=== PATIENT | male | born 1940 | race Caucasian/White ===

== ENCOUNTER 2017-04-20 01:58 | Emergency (ER) | payer MEDICARE ==
[~2017-04-20] VITALS: Ht 165.1 cm; Wt 82.0 kg
[2017-04-20 02:20] VITALS: BP 137/87
== END 2017-04-20 03:35 | disposition home or self-care (01) ==
LOC: ER 02:06
DX: J70.5 Respiratory conditions due to smoke inhalation (principal); E11.9 Type 2 diabetes mellitus without complications
CPT/HCPCS: 71010; 99284

== ENCOUNTER 2022-12-01 11:32 | Inpatient (IN) | payer MEDICARE, OTHER ==
[~2022-12-01] VITALS: Ht 165.1 cm; Wt 78.9 kg
[2022-12-01] MEDS ORDERED: DEXAMETHASONE 10 MG/ML VIAL IV ONE (11:45)
[2022-12-01 12:17] LABS: BASOPHILS % 0.2 % (0.0-2.0); EOSINOPHILS % 0.2 % (0.0-5.0); HEMATOCRIT. 43.1 % (42.0-52.0); HEMOGLOBIN. 14.7 g/dL (14.0-18.0); LYMPHOCYTES % 13.2 % (20.0-50.0); MEAN CORPUSCULAR HEMOGLOBIN 28.3 pg (28.0-32.0); MEAN CORPUSCULAR VOLUME 82.9 fL (80.0-94.0); MEAN PLATELET VOLUME 8.1 fl (7.4-10.4); NEUTROPHILS % 78.4 % (40.0-76.0); PLATELET 398 x1000/uL (130-400); RED CELL DISTRIBUTION WIDTH 14.5 % (11.6-14.6)
[2022-12-01 12:28] LABS: D-DIMER 0.45 mg/L FEU (<0.50); INR 1.1; PROTHROMBIN TIME 11.5 sec (9.6-11.0)
[2022-12-01 12:30] LABS: CHLORIDE 98 mEq/L (98-107)
[2022-12-01 12:31] LABS: BG BASE EXCESS 3.2 mmol/L (-2.0-2.0); BG CARBOXYHEMOGLOBIN 0.7 % (0.5-1.5); BG DEOXYHEMOGLOBIN 3.6 % (0.0-5.0); BG FRACTION INSPIRED OXYGEN 100; BG HCO3 ACT 26.5 mmol/L (22.0-26.0); BG METHEMOGLOBIN 0.3 % (0.0-1.5); BG OXYGEN SATURATION 96.4 % (92.0-98.5); BG OXYHEMOGLOBIN 95.4 % (94.0-97.0); BG PCO2 36.1 mmHg (35.0-45.0); BG PH 7.483 (7.350-7.450); BG PO2 80.7 mmHg (75.0-100.0); BG SAMPLE SITE RIGHT BRACHIAL; BG TOTAL HEMOGLOBIN 14.5 g/dL (12.0-18.0); BG VENT MODE MASK - NRB
[2022-12-01] MEDS ORDERED: DEXAMETHASONE 10 MG/ML VIAL IV NR (14:15)
[2022-12-01 21:00] VITALS: BP 144/61
[2022-12-01] MEDS ORDERED: INSNOV SUBCUT (21:06)
[2022-12-01] MEDS ORDERED: HYDR25TA PO (21:06)
[2022-12-01] MEDS ORDERED: ASPI-1497 PO (21:06)
[2022-12-01] MEDS ORDERED: ATOR20TA65 PO (21:06)
[2022-12-01] MEDS ORDERED: LISI40TA13 PO (21:06)
[2022-12-01] MEDS ORDERED: AMLO10TA80 PO (21:06)
[2022-12-01] MEDS ORDERED: INSU100I43 SQ ×2 (21:06)
[2022-12-01] MEDS ORDERED: ONDANSETRON HCL 4MG/2ML INJ IV PRN (22:15)
[2022-12-01] MEDS ORDERED: ACETAMINOPHEN 325MG TABLET PO PRN (22:15)
[2022-12-01] MEDS ORDERED: DEXTROSE 50% WATER 50ML SYRINGE IV PRN (22:30)
[2022-12-01] MEDS ORDERED: LEVOFLOXACIN 500MG PREMIX 100 ML IV SCH (23:00)
[2022-12-01] MEDS: DEXAMETHASONE 10 MG/ML VIAL IV SCH (23:11)
[2022-12-01] MEDS: ENOXAPARIN 40MG/0.4ML SYR SUBCUT SCH (23:12)
[2022-12-01] MEDS: BLOOD SUGAR DIAGNOSTIC STRIP TEST SCH (23:14)
[2022-12-01] MEDS: INSULIN LISPRO 100 UNITS/ML SUBCUT SCH (23:14)
[2022-12-01 23:30] VITALS: BP 146/61
[2022-12-02] VITALS: BP 126/57
[2022-12-02 04:00] VITALS: BP 116/55
[2022-12-02] MEDS: BLOOD SUGAR DIAGNOSTIC STRIP TEST SCH ×4 (06:33→21:25)
[2022-12-02] MEDS ORDERED: INSULIN LISPRO 100 UNITS/ML SUBCUT SCH (06:40)
[2022-12-02 07:01] LABS: BASOPHILS % 0.1 % (0.0-2.0); HEMATOCRIT. 41.5 % (42.0-52.0); HEMOGLOBIN. 14.1 g/dL (14.0-18.0); LYMPHOCYTES % 9.3 % (20.0-50.0); MEAN CORPUSCULAR HEMOGLOBIN 28.1 pg (28.0-32.0); MEAN CORPUSCULAR VOLUME 82.8 fL (80.0-94.0); MEAN PLATELET VOLUME 8.4 fl (7.4-10.4); MONOCYTES % 1.9 % (2.0-8.0); NEUTROPHILS % 88.7 % (40.0-76.0); PLATELET 386 x1000/uL (130-400); RED BLOOD CELL COUNT 5.01 mill/uL (4.7-6.1); RED CELL DISTRIBUTION WIDTH 14.1 % (11.6-14.6)
[2022-12-02] MEDS: INSULIN LISPRO 100 UNITS/ML SUBCUT SCH ×6 (07:01→22:01)
[2022-12-02 07:33] LABS: CHLORIDE 96 mEq/L (98-107)
[2022-12-02 07:48] LABS: CREATINE KINASE 81 IU/L (39-308); CREATINE KINASE MB FRACTION 1.8 ng/mL (0.5-3.6)
[2022-12-02 08:00] VITALS: BP 124/50
[2022-12-02] MEDS: HYDROCHLOROTHIAZIDE 25MG TABLET PO SCH (09:41)
[2022-12-02] MEDS: ASPIRIN 81MG EC TABLET PO SCH (09:41)
[2022-12-02] MEDS: ATORVASTATIN CALCIUM 20MG TABLET PO SCH (09:41)
[2022-12-02] MEDS: LISINOPRIL 40MG TABLET PO SCH (09:42)
[2022-12-02] MEDS: AMLODIPINE 10MG TABLET PO SCH (09:42)
[2022-12-02] MEDS: INS NPH/REG HM 70-30 100 UNITS/ML 10ML VIAL (HUMULIN 70-30) SUBCUT SCH ×2 (09:43→18:03)
[2022-12-02] MEDS: FAMOTIDINE 20MG/2ML VIAL IV SCH ×2 (09:43→21:27)
[2022-12-02 12:00] VITALS: BP 127/59
[2022-12-02 16:00] VITALS: BP 113/49
[2022-12-02 18:34] LABS: CREATINE KINASE MB FRACTION 1.9 ng/mL (0.5-3.6)
[2022-12-02 20:00] VITALS: BP 96/48
[2022-12-02] MEDS: DEXAMETHASONE 10 MG/ML VIAL IV SCH (21:27)
[2022-12-02] MEDS: ENOXAPARIN 40MG/0.4ML SYR SUBCUT SCH (21:28)
[2022-12-02] MEDS: LEVOFLOXACIN 750MG PREMIX 150 ML IV SCH (22:00)
[2022-12-03] VITALS: BP 117/60
[2022-12-03 04:00] VITALS: BP 117/59
[2022-12-03 06:18] LABS: HEMATOCRIT. 37.7 % (42.0-52.0); HEMOGLOBIN. 12.9 g/dL (14.0-18.0); MEAN CORPUSCULAR VOLUME 81.6 fL (80.0-94.0); MEAN PLATELET VOLUME 8.5 fl (7.4-10.4); PLATELET 408 x1000/uL (130-400); RED BLOOD CELL COUNT 4.61 mill/uL (4.7-6.1)
[2022-12-03] MEDS: BLOOD SUGAR DIAGNOSTIC STRIP TEST SCH ×4 (06:22→21:05)
[2022-12-03] MEDS: INSULIN LISPRO 100 UNITS/ML SUBCUT SCH ×7 (06:26→21:24)
[2022-12-03 07:27] LABS: CHLORIDE 100 mEq/L (98-107)
[2022-12-03] MEDS: FAMOTIDINE 20MG/2ML VIAL IV SCH (09:39)
[2022-12-03] MEDS: ATORVASTATIN CALCIUM 20MG TABLET PO SCH (09:39)
[2022-12-03] MEDS: LISINOPRIL 40MG TABLET PO SCH (09:40)
[2022-12-03] MEDS: ASPIRIN 81MG EC TABLET PO SCH (09:40)
[2022-12-03] MEDS: AMLODIPINE 10MG TABLET PO SCH (09:40)
[2022-12-03] MEDS: HYDROCHLOROTHIAZIDE 25MG TABLET PO SCH (09:41)
[2022-12-03] MEDS: INS NPH/REG HM 70-30 100 UNITS/ML 10ML VIAL (HUMULIN 70-30) SUBCUT SCH ×2 (09:42→17:39)
[2022-12-03 10:58] LABS: PLATELET ESTIMATE SLIGHTLY INCREASED
[2022-12-03 11:38] LABS: BG BASE EXCESS 2.3 mmol/L (-2.0-2.0); BG CARBOXYHEMOGLOBIN 0.3 % (0.5-1.5); BG DEOXYHEMOGLOBIN 14.2 % (0.0-5.0); BG FRACTION INSPIRED OXYGEN 21; BG HCO3 ACT 25.5 mmol/L (22.0-26.0); BG METHEMOGLOBIN 0.3 % (0.0-1.5); BG OXYGEN SATURATION 85.7 % (92.0-98.5); BG OXYHEMOGLOBIN 85.2 % (94.0-97.0); BG PCO2 35.5 mmHg (35.0-45.0); BG PH 7.475 (7.350-7.450); BG SAMPLE SITE RIGHT RADIAL; BG TOTAL HEMOGLOBIN 15.2 g/dL (12.0-18.0); BG VENT MODE ROOM AIR
[2022-12-03 12:00] VITALS: BP 104/50
[2022-12-03] MEDS ORDERED: DIATR MEGLU/DIATRIZOATE SOLN 30ML PO NR (12:30)
[2022-12-03 16:00] VITALS: BP 123/52
[2022-12-03 20:00] VITALS: BP 116/61
[2022-12-03] MEDS ORDERED: DEXAMETHASONE 4MG/ML 1ML VIAL IV SCH (21:00)
[2022-12-03] MEDS: ENOXAPARIN 40MG/0.4ML SYR SUBCUT SCH (21:17)
[2022-12-03] MEDS: FAMOTIDINE 20MG TABLET PO SCH (21:17)
[2022-12-03] MEDS: LEVOFLOXACIN 750MG PREMIX 150 ML IV SCH (22:00)
[2022-12-04] VITALS: BP 125/66
[2022-12-04 04:00] VITALS: BP 131/60
[2022-12-04] MEDS: BLOOD SUGAR DIAGNOSTIC STRIP TEST SCH ×3 (05:54→16:41)
[2022-12-04] MEDS: INSULIN LISPRO 100 UNITS/ML SUBCUT SCH ×6 (06:15→17:10)
[2022-12-04 08:00] VITALS: BP 116/57
[2022-12-04] MEDS: LISINOPRIL 40MG TABLET PO SCH (09:55)
[2022-12-04] MEDS: HYDROCHLOROTHIAZIDE 25MG TABLET PO SCH (09:55)
[2022-12-04] MEDS: ASPIRIN 81MG EC TABLET PO SCH (09:55)
[2022-12-04] MEDS: ATORVASTATIN CALCIUM 20MG TABLET PO SCH (09:56)
[2022-12-04] MEDS: FAMOTIDINE 20MG TABLET PO SCH (09:56)
[2022-12-04] MEDS: AMLODIPINE 10MG TABLET PO SCH (09:56)
[2022-12-04] MEDS: INS NPH/REG HM 70-30 100 UNITS/ML 10ML VIAL (HUMULIN 70-30) SUBCUT SCH ×2 (10:04→17:00)
[2022-12-04 12:00] VITALS: BP 119/65
[2022-12-04 16:00] VITALS: BP 109/58
[2022-12-04 16:50] VITALS: BP 109/58
== END 2022-12-04 17:35 | disposition home or self-care (01) | DRG 177 ==
LOC: ER 11:49 → 7EST 15:20 → EDBEDREQ 15:22 → EDBEDREQSVC 16:58
PROVIDERS: ADMIT Internal Medicine; ATTEND Internal Medicine
DX: U07.1 COVID-19 (principal); J12.82 Pneumonia due to coronavirus disease 2019; J96.01 Acute respiratory failure with hypoxia; I25.10 Atherosclerotic heart disease of native coronary artery without angina pectoris; E78.5 Hyperlipidemia, unspecified; I10 Essential (primary) hypertension; Z79.4 Long term (current) use of insulin; Z95.1 Presence of aortocoronary bypass graft; E11.65 Type 2 diabetes mellitus with hyperglycemia
CPT/HCPCS: 36415; 36600; 71045; 71250; 74177; 80048; 80053; 82375; 82550; 82553; 82805; 82962; 83036; 83880; 84484; 85025; 85379; 87426; 93005; 99291; C9803; J1100; J1650; J1815; J1956; J3490; Q9963